=== PATIENT | female | born 1995 | race Native Hawaiian/Other Pacific Islander ===

== ENCOUNTER 2019-05-07 07:49 | Emergency (ER) | payer OTHER, MEDICAID, SELFPAY ==
[2019-05-07 07:51] VITALS: BP 127/80; PULSE 84; RESP 18; TEMP 36.9; O2SAT 98; BMI 27.8
--- NOTE | 2019-05-07 07:51 | ED_ITS ---
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 ; reports she will intermittently have pain; she also has a complaint that she believes there might be a lump on her cheekbone Onset (ago): year(s) Duration: intermittent Severity: mild Exacerbating factors: chewing Associated symptoms: Reports no associated symptoms; Denies ear or mastoid pain, fever(s) or painful swallowing Treatment prior to arrival: none Review of Systems Const: Denies: fever or chills Eyes: Denies: change in vision, blurry vision or photophobia ENMT: Reports: facial/sinus pain; Denies: throat pain, enlarged tonsils, painful swallowing, swelling of lips/tongue, oral sores/lesions, dental pain, ear pain, tinnitus, nasal discharge or nasal congestion Physical Exam Const: COMMON NORMALS: no apparent distress, oriented x3, healthy appearing, alert and well nourished HENMT: COMMON NORMALS: normocephalic, head/scalp atraumatic, external ears normal, EAC's normal, TM's normal bilaterally, external nose normal, oropharynx normal and dentition normal HEAD & SCALP: normocephalic and atraumatic FACE & SINUS: other (TTP R zygomatic bone and TMJ; no clicking noted) NOSE: external nose normal EXTERNAL EAR: Yes external ears normal EXTERNAL AUDITORY CANAL: EAC's normal TYMPANIC MEMBRANE: TM's normal bilaterally MOUTH: oral and palatal mucosa normal and salivary glands and ducts normal THROAT: posterior oropharynx normal, tonsils normal and uvula midline OTHER: what pt feels to be a lump on her bone is actually normal bony anatomy of her zygomatic bone as the same is felt on the left side Neck/C-Spine: COMMON NORMALS: no lymphadenopathy Neuro: COMMON NORMALS: oriented x3 SENSORIUM/ORIENTATION: Yes alert Course Vital Signs: Vital signs: Vital Signs Temperature 98.4 F 05/07/19 07:51 Pulse Rate 67 05/07/19 08:08 Respiratory Rate 15 05/07/19 08:08 Blood Pressure 122/85 05/07/19 08:08 Pulse Oximetry 97 05/07/19 08:08 Discharge Plan Discharge Patient Disposition: Home, Self-Care Clinical Impression: TMJ arthralgia Qualifiers: Laterality: right Qualified Code(s): M26.621 - Arthralgia of right temporomandibular joint Condition: Stable Prescriptions: New diclofenac sodium 50 mg tablet,delayed release (DR/EC) 50 mg PO Q12H PRN (Reason: pain) Qty: 20 RF: 0 Discharge Orders: Discharge Order (Routine); Ordered 05/07/19 Ordered By: Lidia Magana Discharge Diet: Usual diet Discharge Activity: Resume usual activity Activity Restrictions/Additional Instructions: Case management will set you up with a primary care physician. Discharge Date/Time: 05/07/19 08:09 Coding Level of Care Code ED Plastic Surgeon for Asaf Hernández
--- NOTE | 2019-05-07 08:01 | PC.NURSE ---
Patient has right sided facial pain with swelling. Patient has chronic jaw problems. Swelling palpated.
[2019-05-07 08:08] VITALS: BP 122/85; PULSE 67; RESP 15; O2SAT 97
--- NOTE | 2019-05-07 12:51 | DCPLANNER ---
brand strategy manager had message to speak with patient about getting established with a primary care physician. brand strategy manager called [phone], unable to speak with patient at this time, no voicemail set up.
== END 2019-05-07 08:09 | disposition home or self-care (01) ==
LOC: ER 08:07
PROVIDERS: Emergency Provider Physician Assistant
DX: M26.621 Arthralgia of right temporomandibular joint (principal)
CPT/HCPCS: 99281; 99283

== ENCOUNTER → 2019-09-11 15:01 | Outpatient (BNVA) | payer OTHER, MEDICAID, SELFPAY | PROVIDERS: Visit Provider Obstetrics & Gynecology | DX: N91.5 Oligomenorrhea, unspecified (principal); N89.8 Other specified noninflammatory disorders of vagina; B37.3 Candidiasis of vulva and vagina | CPT/HCPCS: 84146; 84443; 87210; 87491; 87591 ==

== ENCOUNTER → 2019-12-26 14:43 | Outpatient (BNVA) | payer OTHER, MEDICAID, SELFPAY | PROVIDERS: Visit Provider Psychiatry & Neurology Psychiatry | DX: F60.3 Borderline personality disorder (principal); F33.2 Major depressive disorder, recurrent severe without psychotic features; F41.1 Generalized anxiety disorder; F17.200 Nicotine dependence, unspecified, uncomplicated | CPT/HCPCS: 99204 ==

== ENCOUNTER → 2020-01-24 08:14 | Outpatient (BNVA) | payer OTHER, MEDICAID, SELFPAY | PROVIDERS: Visit Provider Psychiatry & Neurology Psychiatry | DX: F41.1 Generalized anxiety disorder (principal); F33.2 Major depressive disorder, recurrent severe without psychotic features; F60.3 Borderline personality disorder; F17.200 Nicotine dependence, unspecified, uncomplicated | CPT/HCPCS: 99214 ==

== ENCOUNTER → 2020-02-21 07:40 | Outpatient (BNVA) | payer OTHER, MEDICAID, SELFPAY | PROVIDERS: Visit Provider Psychiatry & Neurology Psychiatry | DX: F41.1 Generalized anxiety disorder (principal); F33.2 Major depressive disorder, recurrent severe without psychotic features; F60.3 Borderline personality disorder; F17.200 Nicotine dependence, unspecified, uncomplicated | CPT/HCPCS: 99213 ==

== ENCOUNTER → 2020-05-08 08:30 | Outpatient (BNVA) | payer OTHER, MEDICAID, SELFPAY | PROVIDERS: Visit Provider Psychiatry & Neurology Psychiatry | DX: F41.1 Generalized anxiety disorder (principal); F33.2 Major depressive disorder, recurrent severe without psychotic features; F60.3 Borderline personality disorder; F17.200 Nicotine dependence, unspecified, uncomplicated | CPT/HCPCS: 99213 ==

== ENCOUNTER → 2020-05-13 09:37 | Outpatient (BNVA) | payer OTHER, MEDICAID, SELFPAY | PROVIDERS: Visit Provider Nurse Practitioner Women's Health | DX: R87.619 Unspecified abnormal cytological findings in specimens from cervix uteri (principal); N91.5 Oligomenorrhea, unspecified; E28.2 Polycystic ovarian syndrome; Z30.017 Encounter for initial prescription of implantable subdermal contraceptive | CPT/HCPCS: 84702; 88175 ==

== ENCOUNTER → 2020-05-25 14:50 | Outpatient (BNVA) | payer OTHER, MEDICAID, SELFPAY | PROVIDERS: Visit Provider Family Medicine | DX: E28.2 Polycystic ovarian syndrome (principal); Z13.6 Encounter for screening for cardiovascular disorders | CPT/HCPCS: 80053; 80061; 83036 ==

== ENCOUNTER 2020-05-26 10:51 | Outpatient (CLI) | payer OTHER, MEDICAID, SELFPAY ==
--- NOTE | 2020-05-26 11:14 | XR_ITS ---
WS: [id number] CERVICAL SPINE TECHNIQUE: 3 views of the cervical spine CLINICAL INFORMATION: chronic neck pain with radiculopathy COMPARISON: None. FINDINGS: Straightening of the normal cervical lordosis. Slight anterolisthesis C4 on C5 and C5 on C6. Normal C 1-2 articulation. Disc space heights and vertebral body heights are well preserved. Normal prevertebr al soft tissues. XR/XR cervical spine 3V* [id number] IMPRESSION: 1. Straightening of the normal cervical lordosis with slight anterolisthesis C 4 on C5 and C5 on C6. 2. Normal C1-2 articulation.
== END 2020-05-26 10:52 | disposition home or self-care (01) ==
LOC: RADWPI 10:56
PROVIDERS: PCP Family Medicine; Visit Provider Family Medicine
DX: M54.2 Cervicalgia (principal); M54.12 Radiculopathy, cervical region
CPT/HCPCS: 72040

== ENCOUNTER → 2020-06-04 08:01 | Outpatient (BNVA) | payer OTHER, MEDICAID, SELFPAY | PROVIDERS: PCP Family Medicine; Visit Provider Psychiatry & Neurology Psychiatry | DX: F41.1 Generalized anxiety disorder (principal); F33.2 Major depressive disorder, recurrent severe without psychotic features; F60.3 Borderline personality disorder; F17.200 Nicotine dependence, unspecified, uncomplicated | CPT/HCPCS: 99213 ==

== ENCOUNTER 2020-06-08 08:24 | Emergency (ER) | payer OTHER, MEDICAID, SELFPAY ==
[2020-06-08 08:32] VITALS: BP 133/77; PULSE 79; RESP 16; TEMP 36.3; O2SAT 97; BMI 38.4
--- NOTE | 2020-06-08 08:38 | W.ED.NAVMDI ---
HPI - Nausea/Vomiting/Diarrhea General: Chief complaint: Abdominal Pain Stated complaint: Throwing up Blood Time Seen by Provider: 06/08/20 08:25 Source: patient Mode of arrival: ambulatory Limitations: no limitations History of Present Illness: HPI Narrative: Patient is a 25-year-old female who presents to ED today with what she believes is blood in her vomit. Patient tells me yesterday she began having abdominal pain that she described as crampy in nature and states it felt like I had food poisoning . She denies any bad food exposures. No body else in the home was sick. She states yesterday afternoon/evening she began vomiting. She states she had 2-3 episodes of normal vomit but states today she had another 2-3 episodes that she describes as black and coffee-ground looking . She states her abdominal pain is located to her mid abdomen as well as throughout her upper abdomen. Patient states she had a gastric ulcer once approximately 10 years ago. Reports she normally takes Famotidine but has been out of this medication. She does tell me she was recently placed on meloxicam for neck inflammation . She has not tried treating at home with anything. She has not been running fevers. She is having normal bowel movements. Patient is not on anticoagulation. She has not been taking any OTC anti-inflammatories along with the meloxicam. Patient denies alcohol use. MD elicited complaint: nausea, vomiting and abdominal pain Associated nausea: Yes Associated abdominal pain: Yes Location of pain: Epigastric, Periumbilical, LUQ and RUQ Pain consistency: constant Severity: mild Exacerbating factors: eating Associated symtoms: Reports dizziness and nausea; Denies change in vision, chest pain, dysuria, fatigue, headache(s), malaise, palpitations or syncope Treatment prior to arrival: none Review of Systems Const: Denies: fever(s), chills, body aches, fatigue or malaise Eyes: Denies: change in vision ENMT: Denies: throat pain or odynophagia Card: Denies: chest pain, palpitations, irregular heart rhythm, edema, swelling of feet/ankles, syncope, pre-syncope, dyspnea on exertion or orthopnea Resp: Denies: dyspnea, productive cough, non-productive cough, wheezing, hemoptysis or chest congestion GI: Reports: abdominal pain, nausea, vomiting and hematemesis; Denies: diarrhea, change in bowel habits, rectal swelling, change in stool character, hematochezia or melena : Denies: flank pain, difficulty voiding, dysuria, urinary frequency, urinary urgency or urinary hesitancy Musc: Denies: neck pain or back pain Skin/Breast: Denies: rash Neuro: Reports: dizziness; Denies: headache(s), numbness in extremities, weakness in extremities or sensory changes PFSH ED PFSH: Medical History Abnormal Pap smear of cervix 05/11/2018: LGSIL (beginning of ). 12/17/2018: Negative for intraepithelial lesion or malignancy (). History of depression History of depression. Has been treated with Celexa, which did not help. Treated with Effexor, but states had a reaction to it. Treated with Wellbutrin during . Followed by [facility] No pertinent past medical history neghx: htn,dm,thyroid,dvt/pe PCP: None Ocular migraine previously managed by [facility] Tachycardia Dx'd at 9 y/o; managed with propranolol Surgical History No pertinent past surgical history Family History Grandmother Uterine cancer maternal great Ovarian cancer maternal great Stroke maternal Heart disease maternal, paternal Hypertension maternal, paternal Diabetes maternal Grandfather Heart disease paternal Hypertension maternal, paternal Father Heart disease Hypertension Mother Hypertension Social History Smoking and tobacco status: current every day smoker e-cigarettes E-Cigarette Details: vaporizer device and with nicotine Alcohol intake: current Alcohol intake frequency: holidays/special occasions only Physical Exam Const: COMMON NORMALS: no acute distress, patient oriented x3, no limitations and alert GENERAL APPEARANCE: cooperative NUTRITIONAL APPEARANCE: obese morbidly obese ORIENTATION/CONSCIOUSNESS: Yes awake, Yes oriented to person, Yes oriented to place and Yes oriented to time HENMT: COMMON NORMALS: normocephalic and atraumatic HEAD & SCALP: normocephalic and atraumatic Resp: COMMON NORMALS: normal respiratory effort and clear to auscultation bilaterally AUSCULTATION: clear to auscultation bilaterally Cardio: COMMON NORMALS: regular rate and regular rhythm RATE: regular rate RHYTHM: regular rhythm GI: COMMON NORMALS: Normal to inspection, nondistended, normoactive bowel sounds present, Soft to palpation, No hepatosplenomegaly present and no masses INSPECTION: Yes normal to inspection AUSCULTATION: Yes normoactive bowel sounds PALPATION: Yes Soft to palpation, Yes Tenderness to palpation present (GI) (mid abdomen near umbilicus and to the L; throughout upper abdomen) and Yes No hepatosplenomegaly present : COMMON NORMALS: Yes no CVA tenderness BLADDER/KIDNEY EXAM: Yes no CVA tenderness Back/Pelvis: COMMON NORMALS: no CVA tenderness Neuro: COMMON NORMALS: patient oriented x3 SENSORIUM/ORIENTATION: Yes alert, Yes oriented to person, Yes oriented to place and Yes oriented to time Skin: COMMON NORMALS: no rashes or lesions noted GENERAL SKIN EXAM: no rashes or lesions noted Course Vital Signs: Vital signs: Vital Signs Temperature 97.3 F L 06/08/20 08:32 Pulse Rate 68 06/08/20 09:37 Respiratory Rate 16 06/08/20 09:37 Blood Pressure 104/73 06/08/20 09:37 Pulse Oximetry 98 06/08/20 09:37 MDM - Nausea/Vomiting/Diarrhea MDM Narrative: Medical decision making narrative: Patient states she feels much better after GI cocktail given here. No vomiting during her ED course. Lab work is non-concerning. Orthostatics are negative. She is hemodynamically stable. CT showing hiatal hernia and possibly gastritis. Symptoms began a few days after starting meloxicam. At this time we will place patient on a PPI/Carafate. Will place information with case management to get her follow-up with general surgery for possible endoscopy if symptoms do not improve. Return to ED precautions given. Lab Data: Labs: Lab Results 06/08/20 06/08/20 06/08/20 Range/Units 08:42 08:42 08:42 WBC 7.9 (4.0-10.0) 10^3/ uL RBC 4.31 (4.1-5.3) 10^6/u L Hgb 12.8 (11.5-15.3) g/dL Hct 39.0 (37.0-47.0) % MCV 90.5 (81-99) fL MCH 29.7 (28.0-34.0) pg MCHC 32.8 (30.0-36.0) g/dL RDW 12.2 (12.1-15.1) % Plt Count 320 (130-400) 10^3/c mm MPV 9.7 (7.4-10.4) fL Neut % (Auto) 53.4 % Lymph % (Auto) 36.6 % Gordon % (Auto) 7.7 % Eos % (Auto) 1.9 % Baso % (Auto) 0.3 % Neut # (Auto) 4.24 (1.8-7.7) 10^3/u L Lymph # (Auto) 2.9 (0.8-4.8) 10^3/u L Gordon # (Auto) 0.6 (0.2-0.9) 10^3/u L Eos # (Auto) 0.2 (0.0-0.8) 10^3/u L Baso # (Auto) 0.0 (0.0-0.1) 10^3/u L Nucleated RBC % (a uto) 0 % Nucleated RBCs # 0.0 /100WBC Sodium 138 (136-145) mmol/L Potassium 4.1 (3.5-5.1) mmol/L Chloride 105 (98-107) mmol/L Carbon Dioxide 25 (22-29) mmol/L Anion Gap 12.1 (5-19) BUN 9 (6-20) mg/dL Creatinine 0.6 (0.5-0.9) mg/dL GFR Calculation 123.9 (90-130) mL/min Glucose 96 (65-115) mg/dL Calculated Osmolal ity 285 (285-295) mOsm/k g Calcium 9.0 (8.5-10.5) mg/dL Total Bilirubin 0.2 (0.15-1.2) mg/dL AST 15 (0-32) U/L ALT 17 (0-33) U/L Alkaline Phosphata se 119 H (35-105) IU/L Total Protein 7.2 (6.6-8.7) g/dL Albumin 4.2 (3.5-5.2) g/dL Globulin 3.0 (1.3-4.6) g/dL Lipase 19 (13-60) U/L HCG, Qual Negative (Negative) Imaging Data^: CT Abd/Pel: Radiologist's impression: [facility] [address] [place] [address] CT Scan Report Signed Patient: Lesli Ospina #: [id number] : 1995Acct#:[id number] Age/Sex: 25 / FADM Date: 06/08/20 Loc: ERRoom/Bed: Attending Dr: Ordering Provider/Ordering MD: Lidia Magana Date of Service: 06/08/20 Procedure(s): CT abdomen pelvis w con* [id number] Accession Number(s): [id number] Report Number: [id number] WS: [id number] CT ABDOMEN AND PELVIS WITH CONTRAST HISTORY: mid to upper abdominal pain; hematemesis TECHNIQUE: Imaging performed of the abdomen and pelvis with IV contrast. Single phase imaging of the abdomen. Coronal and sagittal reformats are submitted. All CT scans at [facility] use at least one of these dose optimization techniques: automated exposure control; mA and/or kV adjustment per patient size (includes targeted exams where dose is matched to clinical indication); or iterative reconstruction. IV CONTRAST: Omnipaque 300; 95 mL IV. Oral contrast: No DLP: 1408.88 mGy.cm COMPARISON: 11/10/2017 Lower thorax: Lung bases are clear. Heart is normal size. Small hiatal hernia. There is mild thickening of the distal esophagus. Liver/biliary system: Normal size with no intrahepatic dilatation. Gallbladder: Normal. No gallstones or wall thickening. No pericholecystic fluid. Pancreas: Normal. Spleen: Normal. Adrenal glands: Normal. Right kidney: Normal. Left kidney: Normal. Aorta: Normal. Lymphadenopathy: None. Free fluid: None. GI tract: Very mild thickening of the stomach antrum. No mass identified. No GI tract obstruction. The appendix is normal. No diverticular disease. Abdominal wall: Unremarkable abdominal wall. No hernia. Pelvis: Normal. Bones: Unremarkable. CT/CT abdomen pelvis w con* [id number] IMPRESSION: 1. Small hiatal hernia with mild thickening the distal esophagus. May be from vomiting or esophagitis. 2. Mild antral thickening. 3. Normal appendix. 4. No bile duct dilatation. Dictated By:Doris Cortez DO Signed By:Doris Cortez DOSigned Date/Time:06/08/20904 DD/ 9 Discharge Plan Discharge Patient Disposition: Home Clinical Impression: Hematemesis Qualifiers: Nausea presence: with nausea Qualified Code(s): K92.0 - Hematemesis Condition: Stable Prescriptions: New pantoprazole 40 mg tablet,delayed release (DR/EC) 40 mg PO DAILY 28 Days RF: 0 Carafate 1 gram tablet 1 g PO BID 28 Days Qty: 56 RF: 0 Continued famotidine 20 mg tablet 20 mg PO BID Qty: 60 RF: 0 Discontinued meloxicam [Mobic] 15 mg tablet 15 mg PO DAILY Qty: 30 RF: 1 No Action trazodone 50 mg tablet 100 mg PO .HS Qty: 60 RF: 2 fluoxetine [Prozac] 20 mg capsule 20 mg PO DAILY Qty: 30 RF: 2 prazosin 5 mg capsule 5 mg PO .HS Qty: 30 RF: 2 Discharge Orders: Discharge ED (Routine); Ordered 06/08/20 Ordered By: Lidia Magana Referrals: Elise Colon DO [Primary Care Provider] - Patient Instructions: Diet for Ulcers and Gastritis (ED), Opioid Safety Activity Restrictions/Additional Instructions: [facility] is committed to fighting the nationwide opiate epidemic. We are providing ALL patients with information regarding opiate safety. If you received opiate pain medication during your stay or if you received a prescription for opiate pain medication-please review this handout. If not, you may disregard. Thank you. Stop taking your meloxicam immediately. Case management should contact you shortly to set you up with an appointment for general surgery for evaluation for an endoscopy if symptoms do not improve. You need to return to the emergency department immediately for worsening bleeding, worsening dizziness, passing out episodes, severe abdominal pain, or any other concerns you may have. Coding Level of Care Code ED Institutional Research Coordinator for Asaf Hernández Exam Detailed
--- NOTE | 2020-06-08 08:38 | CT_ITS ---
WS: [id number] CT ABDOMEN AND PELVIS WITH CONTRAST HISTORY: mid to upper abdominal pain; hematemesis TECHNIQUE: Imaging performed of the abdomen and pelvis with IV contrast. Single phase imaging of the abdomen. Coronal and sagittal reformats are submitted. All CT scans at [facility] use at least one of these dose optimization techniques: automated exposure control; mA and/or kV adjustment per patient size (includes targeted exams where dose is matched to clinical indication); or iterativ e reconstruction. IV CONTRAST: Omnipaque 300; 95 mL IV. Oral contrast: No DLP: 1408.88 mGy.cm COMPARISON: 11/10/2017 Lower thorax: Lung bases are clear. Heart is normal size. Small hiatal hernia. There is mild thickeni ng of the distal esophagus. Liver/biliary system: Normal size with no intrahepatic dilatation. Gallbladder: Normal. No gallstones or wall thickening. No pericholecystic fluid. Pancreas: Normal. Spleen: Normal. Adrenal glands: Normal. Right kidney: Normal. Left kidney: Normal. Aorta: Normal. Lymphadenopathy: None. Free fluid: None. GI tract: Very mild thickening of the stomach antrum. No mass identified. No GI tract obstruction. Th e appendix is normal. No diverticular disease. Abdominal wall: Unremarkable abdominal wall. No hernia. Pelvis: Normal. Bones: Unremarkable. CT/CT abdomen pelvis w con* [id number] IMPRESSION: 1. Small hiatal hernia with mild thickening the distal esophagus. May be from vomiting or esophagitis. 2. Mild antral thickening. 3. Normal appendix. 4. No bile duct dilatation.
[2020-06-08 08:42] VITALS: PULSE 76; RESP 18; O2SAT 96
[2020-06-08 08:49] LABS: Basophils % 0.3 %; Eosinophils # 0.2 10^3/uL (0.0-0.8); Eosinophils % 1.9 %; Hemoglobin 12.8 g/dL (11.5-15.3); Lymphocytes # 2.9 10^3/uL (0.8-4.8); Lymphocytes % 36.6 %; Mean Corpuscular HGB Conc 32.8 g/dL (30.0-36.0); Mean Corpuscular Hemoglobin 29.7 pg (28.0-34.0); Mean Corpuscular Volume 90.5 fL (81-99); Mean Platelet Volume 9.7 fL (7.4-10.4); Monocytes # 0.6 10^3/uL (0.2-0.9); Monocytes % 7.7 %; Neutrophils # 4.24 10^3/uL (1.8-7.7); Neutrophils % 53.4 %; Nucleated Red Blood Cells % 0 %; Platelet Count 320 10^3/cmm (130-400); Red Blood Count 4.31 10^6/uL (4.1-5.3); Red Cell Distribution Width 12.2 % (12.1-15.1); White Blood Count 7.9 10^3/uL (4.0-10.0)
[2020-06-08] MEDS: iohexol 300 mg/mL 100 mL Btl IV (08:50)
[2020-06-08 08:54] VITALS: BP 116/81; BP 126/63; BP 126/87; PULSE 73; PULSE 80; PULSE 83
[2020-06-08] MEDS: sodium chloride 0.9% 1,000 ML 999 ML IV (08:57)
[2020-06-08] MEDS: ondansetron 2 mg/ML SDV 2 mL 4 MG IVP (08:58)
[2020-06-08] MEDS: lidocaine 2% viscous 15 ML, aluminum-mag hydrox-simethicon 30 ML, sucralfate oral liq 1 GM PO (08:58)
[2020-06-08 09:04] LABS: Alanine Aminotransferase 17 U/L (0-33); Albumin Level 4.2 g/dL (3.5-5.2); Alkaline Phosphatase 119 IU/L (35-105); Anion Gap 12.1 (5-19); Aspartate Amino Transferase 15 U/L (0-32); Blood Urea Nitrogen 9 mg/dL (6-20); Carbon Dioxide 25 mmol/L (22-29); Chloride 105 mmol/L (98-107); Glomerular Filtration Rate 123.9 mL/min (90-130); Glucose 96 mg/dL (65-115); Lipase 19 U/L (13-60); Osmolality Calculated 285 mOsm/kg (285-295); Potassium 4.1 mmol/L (3.5-5.1); Sodium 138 mmol/L (136-145); Total Bilirubin 0.2 mg/dL (0.15-1.2); Total Protein 7.2 g/dL (6.6-8.7)
[2020-06-08 09:12] LABS: HCG, Serum Qual Negative (Negative)
[2020-06-08] MEDS: pantoprazole DR 40 mg Tablet PO (09:36)
[2020-06-08 09:37] VITALS: BP 104/73; PULSE 68; RESP 16; O2SAT 98
--- NOTE | 2020-06-09 11:50 | DCPLANNER ---
manager sas received message to schedule appointment with general surgery. manager sas emailed Jennifer. They will reviewed and contact patient with appointment information.
--- NOTE | 2020-06-16 14:55 | DCPLANNER ---
Patient had a follow up appointment scheduled for 06.15.[address] Delacruz at general surgery - patient did attend appointment.
== END 2020-06-08 09:40 | disposition home or self-care (01) ==
PROVIDERS: Emergency Provider Physician Assistant; PCP Family Medicine
DX: K92.0 Hematemesis (principal); F17.290 Nicotine dependence, other tobacco product, uncomplicated
CPT/HCPCS: 74177; 80053; 83690; 84703; 85025; 96361; 96374; 99283; J2405; J7030; Q9967

== ENCOUNTER 2020-06-23 10:19 | Outpatient (RCR) | payer OTHER, MEDICAID, SELFPAY | END 2020-07-22 23:59 | disposition home or self-care (01) | LOC: SPT 10:19 | PROVIDERS: PCP Family Medicine; Referring Provider Anesthesiology Pain Medicine; Visit Provider Family Medicine | DX: M54.2 Cervicalgia (principal); G89.29 Other chronic pain | CPT/HCPCS: 97110; 97161 ==

== ENCOUNTER → 2020-06-30 11:02 | Outpatient (BNVA) | payer OTHER, MEDICAID, SELFPAY | PROVIDERS: PCP Family Medicine; Visit Provider Nurse Practitioner Women's Health | DX: Z30.017 Encounter for initial prescription of implantable subdermal contraceptive (principal) | CPT/HCPCS: 81025 ==

== ENCOUNTER → 2020-07-30 08:32 | Outpatient (BNVA) | payer OTHER, MEDICAID, SELFPAY | PROVIDERS: PCP Family Medicine; Visit Provider Psychiatry & Neurology Psychiatry | DX: F41.1 Generalized anxiety disorder (principal); F33.2 Major depressive disorder, recurrent severe without psychotic features; F60.3 Borderline personality disorder; F17.200 Nicotine dependence, unspecified, uncomplicated | CPT/HCPCS: 99213 ==

== ENCOUNTER → 2020-10-22 10:42 | Outpatient (BNVA) | payer MEDICAID, SELFPAY | PROVIDERS: PCP Family Medicine; Visit Provider Psychiatry & Neurology Psychiatry | DX: F41.1 Generalized anxiety disorder (principal); F33.2 Major depressive disorder, recurrent severe without psychotic features; F60.3 Borderline personality disorder; F17.200 Nicotine dependence, unspecified, uncomplicated; F17.290 Nicotine dependence, other tobacco product, uncomplicated | CPT/HCPCS: 99214 ==

== ENCOUNTER → 2021-01-14 10:49 | Outpatient (BNVA) | payer MEDICAID, SELFPAY | PROVIDERS: PCP Family Medicine; Visit Provider Psychiatry & Neurology Psychiatry | DX: F41.1 Generalized anxiety disorder (principal); F33.2 Major depressive disorder, recurrent severe without psychotic features; F60.3 Borderline personality disorder; F17.290 Nicotine dependence, other tobacco product, uncomplicated | CPT/HCPCS: 99214 ==

== ENCOUNTER → 2021-04-08 11:38 | Outpatient (BNVA) | payer MEDICAID, SELFPAY | PROVIDERS: PCP Family Medicine; Visit Provider Counselor Mental Health | DX: F41.1 Generalized anxiety disorder (principal); F33.2 Major depressive disorder, recurrent severe without psychotic features; F60.3 Borderline personality disorder | CPT/HCPCS: 90837; 90834 ==

== ENCOUNTER → 2021-04-20 14:59 | Outpatient (BNVA) | payer MEDICAID, SELFPAY | PROVIDERS: PCP Family Medicine; Visit Provider Counselor Mental Health | DX: F41.1 Generalized anxiety disorder (principal); F33.2 Major depressive disorder, recurrent severe without psychotic features; F60.3 Borderline personality disorder | CPT/HCPCS: 90834 ==

== ENCOUNTER → 2021-05-10 11:29 | Outpatient (BNVA) | payer MEDICAID, SELFPAY | PROVIDERS: PCP Family Medicine; Visit Provider Counselor Mental Health | DX: F41.1 Generalized anxiety disorder (principal); F33.2 Major depressive disorder, recurrent severe without psychotic features; F60.3 Borderline personality disorder | CPT/HCPCS: 90834 ==

== ENCOUNTER → 2021-05-26 07:23 | Outpatient (BNVA) | payer MEDICAID, SELFPAY | PROVIDERS: PCP Family Medicine; Visit Provider Psychiatry & Neurology Psychiatry | DX: F41.1 Generalized anxiety disorder (principal); F33.2 Major depressive disorder, recurrent severe without psychotic features; F60.3 Borderline personality disorder; F43.12 Post-traumatic stress disorder, chronic; F17.290 Nicotine dependence, other tobacco product, uncomplicated; F12.10 Cannabis abuse, uncomplicated | CPT/HCPCS: 99214 ==

== ENCOUNTER → 2021-06-23 08:04 | Outpatient (BNVA) | payer MEDICAID, SELFPAY | PROVIDERS: PCP Family Medicine; Visit Provider Counselor Mental Health | DX: F43.12 Post-traumatic stress disorder, chronic (principal); F41.1 Generalized anxiety disorder; F33.2 Major depressive disorder, recurrent severe without psychotic features; F60.3 Borderline personality disorder | CPT/HCPCS: 90834 ==

== ENCOUNTER → 2021-06-30 13:55 | Outpatient (BNVA) | payer MEDICAID, SELFPAY | PROVIDERS: PCP Family Medicine; Visit Provider Counselor Mental Health | DX: F33.2 Major depressive disorder, recurrent severe without psychotic features (principal); F41.1 Generalized anxiety disorder; F43.12 Post-traumatic stress disorder, chronic; F60.3 Borderline personality disorder | CPT/HCPCS: 90837; 90834 ==

== ENCOUNTER → 2021-07-22 13:06 | Outpatient (BNVA) | payer MEDICAID, SELFPAY | PROVIDERS: PCP Family Medicine; Visit Provider Counselor Mental Health | DX: F33.2 Major depressive disorder, recurrent severe without psychotic features (principal); F41.1 Generalized anxiety disorder; F60.3 Borderline personality disorder | CPT/HCPCS: 90834 ==

== ENCOUNTER → 2021-07-29 13:31 | Outpatient (BNVA) | payer MEDICAID, SELFPAY | PROVIDERS: PCP Family Medicine; Visit Provider Counselor Mental Health | DX: F43.12 Post-traumatic stress disorder, chronic (principal); F41.1 Generalized anxiety disorder; F33.2 Major depressive disorder, recurrent severe without psychotic features; F60.3 Borderline personality disorder | CPT/HCPCS: 90834; 90847 ==

== ENCOUNTER → 2021-08-19 07:38 | Outpatient (BNVA) | payer MEDICAID, SELFPAY | PROVIDERS: PCP Family Medicine; Visit Provider Counselor Mental Health | DX: F33.2 Major depressive disorder, recurrent severe without psychotic features (principal); F41.1 Generalized anxiety disorder; F43.12 Post-traumatic stress disorder, chronic; F60.3 Borderline personality disorder | CPT/HCPCS: 90832 ==

== ENCOUNTER → 2021-10-08 06:34 | Outpatient (BNVA) | payer MEDICAID, SELFPAY | PROVIDERS: PCP Family Medicine; Visit Provider Counselor Mental Health | DX: F43.12 Post-traumatic stress disorder, chronic (principal); F41.1 Generalized anxiety disorder; F33.2 Major depressive disorder, recurrent severe without psychotic features; F60.3 Borderline personality disorder | CPT/HCPCS: 90834 ==

== ENCOUNTER → 2021-10-14 07:29 | Outpatient (BNVA) | payer MEDICAID, SELFPAY | PROVIDERS: PCP Family Medicine; Visit Provider Counselor Mental Health | DX: F43.12 Post-traumatic stress disorder, chronic (principal); F33.2 Major depressive disorder, recurrent severe without psychotic features; F41.1 Generalized anxiety disorder; F60.3 Borderline personality disorder | CPT/HCPCS: 90834 ==

== ENCOUNTER 2023-12-09 13:49 | Outpatient (CLI) | payer MEDICAID, SELFPAY ==
[2023-12-09] VITALS (8 sets, daily range): BP systolic 103–117; BP diastolic 56–68; PULSE 68–83; RESP 15–17; BMI 30.5
--- NOTE | 2023-12-09 15:38 | PC.NURSE ---
THIS BULLDOGGER ASKED PATIENT UPON ADMISSION IF SHE HAD BEEN CHECKED AND SHE STATED THAT SHE WAS CHECKED IN DR. VALENTINE'S OFFICE AT HER LAST VISIT AND THE NURSE DID IT AND TOLD HER THAT SHE WAS 4 CM. I ASKED HER AGAIN IF IT WAS A NURSE OR DR. VALENTINE AND SHE SAID NO DR. VALENTINE HAD TO LEAVE AND SO NURSE CHECKED HER. SAID SHE WAS TALLER WITH SHORT BROWN HAIR. TOLD HER THAT NURSES AT THE OFFICE WERE NOT ALLOWED TO CHECK PATIENT'S CERVIXS THAT I WAS AWARE OF. WHEN I GAVE REPORT TO DR. VALENTINE HE SAID THAT HIS NURSES DON'T CHECK THE PATIENTS AND I SAID I THOUGHT SO BUT JUST WANTED TO MAKE HIM AWARE WHAT PATIENT SAID. PATIENT ALSO STATED THAT SHE DIDN'T HAVE APPOINTMENT WITH HIM NEXT WEEK BECAUSE THEY SAID DOCTOR WOULD BE OUT OF TOWN. DR. VALENTINE SAID HE WAS GOING TO BE AT THE OFFICE AND THAT SHE NEEDS TO CALL MONDAY AND MAKE APPOINTMENT FOR THIS WEEK.
== END 2023-12-09 15:28 | disposition home or self-care (01) ==
LOC: OPOB 13:49 → OBGYN 13:50
PROVIDERS: Absent Provider Family Medicine; Family Provider Family Medicine; PCP Family Medicine; Visit Provider Family Medicine
DX: O26.899 Other specified pregnancy related conditions, unspecified trimester (principal); Z3A.00 Weeks of gestation of pregnancy not specified; R10.9 Unspecified abdominal pain
CPT/HCPCS: 59025; 99211

== ENCOUNTER 2023-12-23 12:45 | Inpatient (IN) | payer MEDICAID, SELFPAY ==
[2023-12-23] VITALS (60 sets, daily range): BP systolic 90–131; BP diastolic 53–73; PULSE 55–101; O2SAT 93–100; BMI 31.6
[2023-12-23 12:38] LABS: Basophils % 0.2 %; Eosinophils % 0.4 %; Hematocrit 35.7 % (36-47); Lymphocytes # 1.9 10^3/uL (0.8-4.8); Lymphocytes % 19.6 %; Mean Corpuscular HGB Conc 33.9 g/dL (30-55); Mean Corpuscular Hemoglobin 30.6 pg (27-33); Mean Corpuscular Volume 90.2 fl (85-98); Mean Platelet Volume 11.5 fL (7.4-10.4); Monocytes # 0.7 10^3/uL (0.2-0.9); Monocytes % 7.1 %; Neutrophils # 6.85 10^3/uL (1.8-7.7); Neutrophils % 72.4 %; Nucleated Red Blood Cells % 0 %; Platelet Count 218 10^3/cmm (157-399); Red Blood Count 3.96 10^6/uL (3.85-5.65); Red Cell Distribution Width 12.2 % (12.1-15.1); White Blood Count 9.47 10^3/uL (3.29-11.43)
[2023-12-23] MEDS: lactated ringers 1,000 ML 999 ML IV (12:55)
--- NOTE | 2023-12-23 13:51 | ANES.PREANE2 ---
Pre-Anesthetic Assessment Height/Weight: Height 1.6 m Pulse BP 71 112/69 12/23/23 13:46 12/23/23 13:46 Preop Diagnosis: IUP Labor epidural Familial anesthetic complications: None Was Beta Omayra taken within 24 hours: N/A Was Clonidine taken within 24 hours: N/A Social Tobacco (vaping x14 years ) Exam alert, oriented x 3 and clear to auscultation bilaterally Airway Mallampati: Class I Dentition: full History/ROS No significant history except as noted Pulmonary None reported CV/HEM None reported None reported Hepatic None reported GI None reported Metabolic None reported Musc/skel None reported Neuropsych None reported Anesthetic Plan ASA status: 2 Anesthesia: Anesthesia Evaluation and Regional (specify below) (epidural ) Risk of > 500 ml blood loss (7ml/kg in children): Yes, adequate IV access and fluids planned Medications/Allergies Home Medications Medication Instructions Recorded Confirmed Last Taken Type vits no.124-ferrous fum 1 tab PO DAILY 12/09/23 12/09/23 Unknown History 27 mg iron-folic acid 800 mcg tablet ( Vitamin) Allergies Allergy/AdvReac Type Severity Reaction Status Date / Time butorphanol [From Stadol] Allergy Severe ADR-Halluci Verified 05/26/21 10:50 nating Latex, Natural Rubber Allergy Intermediate ALGY-Hives Verified 05/26/21 10:50 venlafaxine [From Effexor] Allergy Intermediate ADR-Numbnes Verified 05/26/21 10:50 s Current Medications Generic Name Dose Route Start Last Admin Trade Name Freq PRN Reason Stop Dose Admin Lactated Ringer's 1,000 mls @ 999 mls/hr 12/23/23 12:47 12/23/23 12:55 Lactated Ringers IV 999 mls/hr .Q1H1M PRN Administration See label comments [facility] Anesthesia Medical History (Updated 01/27/23 @ 08:58 by Tami Whitt) PCOS (polycystic ovarian syndrome) Ocular migraine previously managed by [facility] Tachycardia Dx'd at 9 y/o; managed with propranolol History of depression History of depression. Has been treated with Celexa, which did not help. Treated with Effexor, but states had a reaction to it. Treated with Wellbutrin during . [facility] Abnormal Pap smear of cervix 05/11/2018: LGSIL (beginning of ). 12/17/2018: Negative for intraepithelial lesion or malignancy (). Surgical History No pertinent past surgical history Family History Grandmother Uterine cancer maternal great Ovarian cancer maternal great Stroke maternal Heart disease maternal, paternal Hypertension maternal, paternal Diabetes maternal Grandfather Heart disease paternal Hypertension maternal, paternal Father Heart disease Hypertension Mother Hypertension Social History (Updated 01/14/21 @ 11:07 by Murtaza Delacruz LPN) Smoking and tobacco/nicotine status: current every day tobacco/nicotine user e-cigarettes E-Cigarette Details: vaporizer device and with nicotine E-cig/vape details: .9 mg/Day Quit status (tobacco/nicotine): has tried quititng Number of times tried to quit tobacco: 1 Second hand smoke exposure: Yes Substance/Drug Use: current Substance/Drug use frequency: Special occassions/opportunity only Data Anesthesia 12/23/23 12:20 Short CBC 12/23/23 Range/Units 12:20 WBC 9.47 (3.29-11.43) 10^3/uL Hgb 12.10 (11.27-16.99) g/dL Hct 35.7 L (36-47) % MCV 90.2 (85-98) fl Plt Count 218 (157-399) 10^3/cmm Neut % (Auto) 72.4 % Neut # (Auto) 6.85 (1.8-7.7) 10^3/uL Cardiac Studies: No Data to Display
[2023-12-23] MEDS: dextrose 5%-lactated ringers 1,000 ML 125 ML IV ×2 (14:00→22:12)
[2023-12-23] MEDS: ROPivacaine syringe 100 MG/50 ML SYRINGE 10 MG EPIDURAL ×3 (14:17→23:21)
--- NOTE | 2023-12-23 14:21 | ANES.PROC ---
Anesthesia Procedures Procedure/Date: 12/23/23 labor epidural Epidural: Time Out Performed: Yes Consents Signed: Procedure Consent Consent: requested by attending/covering physician, from patient, risks and benefits reviewed and patient agrees to proceed Lumbar Level: L4-L5 Epidural position: sitting Epidural procedure: sterile prep of area, 1% lidocaine to numb the area, 18 g needle, negative for paresthesia passed, neg for paresthesia, test dose given, 1.5% xylocaine 1:200k epi, 0.2% Ropivacaine bolus ml (5), placed PCEA, no systemic response, sterile dressing applied, L.U.D. no apparent complications and 0.2% Ropiavacaine @ mls/hr (10) Additional Comments: HEMALATHA 6cm, catheter easily threaded to 5cm in the space. VS monitored and remained stable throughout. Pt educated on BLEACH BOILER PULLER and reporting decreased pain with contractions. Report of procedure given to RN at bedside.
[2023-12-24] VITALS (45 sets, daily range): BP systolic 89–135; BP diastolic 48–82; PULSE 51–110; RESP 16; TEMP 26.3–36.8; O2SAT 97–99
[2023-12-24] MEDS: oxytocin 30 UNIT/500 ML BAG 600 UNIT IV (05:45)
--- NOTE | 2023-12-24 05:55 | P.HP_ITS ---
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 Patient was found to be sandrita every 2 to 4 minutes and starting to be uncomfortable. Patient had progressed to 5 cm at the time of arrival. Patient had a fairly unremarkable . labs were normal. Patient is GBS negative. Present Details : 4 Para: 1 Review of Systems 2 General: Reports: 10 or more systems reviewed and unremarkable except in HPI and below Medications/Allergies Home Medications Medication Instructions Recorded Confirmed Last Taken Type vits no.124-ferrous fum 1 tab PO DAILY 12/09/23 12/23/23 Unknown History 27 mg iron-folic acid 800 mcg tablet ( Vitamin) Allergies Allergy/AdvReac Type Severity Reaction Status Date / Time butorphanol [From Stadol] Allergy Severe ADR-Halluci Verified 05/26/21 10:50 nating Latex, Natural Rubber Allergy Intermediate ALGY-Hives Verified 05/26/21 10:50 venlafaxine [From Effexor] Allergy Intermediate ADR-Numbnes Verified 05/26/21 10:50 s [facility] 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 Has been treated with Celexa, which did not help. Treated with Effexor, but states had a reaction to it. Treated with Wellbutrin during . Followed [facility] Abnormal Pap smear of cervix 05/11/2018: LGSIL (beginning of ). 12/17/2018: Negative for intraepithelial lesion or malignancy (). Surgical History No pertinent past surgical history Family History Grandmother Uterine cancer maternal great Ovarian cancer maternal great Stroke maternal Heart disease maternal, paternal Hypertension maternal, paternal Diabetes maternal Grandfather Heart disease paternal Hypertension maternal, paternal Father Heart disease Hypertension Mother Hypertension Social History (Updated 01/14/21 @ 11:07 by Murtaza Delacruz LPN) Smoking and tobacco/nicotine status: current every day tobacco/nicotine user e- cigarettes E-Cigarette Details: vaporizer device and with nicotine E-cig/vape details: .9 mg/Day Quit status (tobacco/nicotine): has tried quititng Number of times tried to quit tobacco: 1 Second hand smoke exposure: Yes Substance/Drug Use: current Substance/Drug use frequency: Special occassions/opportunity only Other Female Reproductive History: Hx Age of Menarche: 13 History History History 2 3 Term 1 0 Miscarriages/Ectopic 2 Living Children 1 Vitals/I&O/Wt Last Vital Signs Pulse 110 H 12/24/23 05:27 BP 135/82 12/24/23 05:27 Pulse Ox 100 12/23/23 14:53 O2 Del Method Room Air 12/23/23 12:32 12/23/23 12/23/23 12/24/23 14:59 22:59 06:59 Intake Total 1050 / 1050 50 / 1100 Balance 1050 / 1050 50 / 1100 Weight last 48 hrs Weight 78.471 kg Physical Exam 2 Const: COMMON NORMALS: no acute distress, patient oriented x3 and alert Resp: COMMON NORMALS: normal respiratory effort, No retractions and No use of accessory muscles Cardio: COMMON NORMALS: no JVD, regular rate and regular rhythm GI: OTHER: Gravid uterus Extremity: COMMON NORMALS: no clubbing, cyanosis or edema Psych: COMMON NORMALS: mental status grossly normal and cooperative Skin: COMMON NORMALS: no rashes or lesions noted Data 12/23/23 12:20 Results Labs OB ([facility]): 2 Blood Type A Positive 12/23/23 Antibody Screen Negative 12/23/23 Hct 35.7 % (36-47) L 12/23/23 Hgb 12.10 g/dL (11.27-16.99) 12/23/23 Rho(D) Type Rh positive 12/23/23 Plt Count 218 10^3/cmm (157-399) 12/23/23 TSH 1.09 uIU/mL (0.27-4.20) 09/11/19 Hemoglobin A1c 5.3 % (4.0-6.0) 05/25/20 Ser , Semi-Qnt 0.50 mIU/mL 05/13/20 HCG, Qual Negative (Negative) 06/30/20 Urine Opiates Screen NEGATIVE ng/mL (NEGATIVE) 11/02/18 Ur Barbiturates Screen NEGATIVE ng/mL (NEGATIVE) 11/02/18 Ur Phencyclidine Scrn NEGATIVE ng/mL (NEGATIVE) 11/02/18 Ur Amphetamines Screen NEGATIVE ng/mL (NEGATIVE) 11/02/18 U Benzodiazepines Scrn NEGATIVE ng/mL (NEGATIVE) 11/02/18 Urine Cocaine Screen NEGATIVE ng/mL (NEGATIVE) 11/02/18 U Marijuana (THC) Screen NEGATIVE ng/mL (NEGATIVE) 11/02/18 Pap Smear Interpret See note 05/13/20 Prolactin 4.57 ng/mL (4.8-23.3) L 09/11/19 Attestations 2 Medical Necessity Statement*: Patient was admitted for active labor. Anticipate at least 2 midnight stay. Coding Level of Care Code Acute Code for Asaf Hernández
--- NOTE | 2023-12-24 06:00 | PM.DELIVERY ---
Delivery Note: Date of delivery: December 24, 2023 Pre-delivery diagnoses: Term intrauterine Post-delivery diagnoses: Same Procedure: Spontaneous vaginal delivery Delivering Physician: Dr. Anatoliy Rojo Estimated blood loss (mL): 200 Pre-Delivery Course: This is a 28-year-old that presented at 38 weeks 4 days. Patient presented with active contractions. The patient had progressed from 4 cm to 5 cm upon arrival. Patient continued to be very uncomfortable and obtained and observed oral. After epidural patient slowly changed. The patient did have spontaneous rupture membranes. Continue to work with the patient as far as positioning goes and eventually the patient had progressed to completion after forebag had ruptured. Delivery: Upon arrival the head was and with the next contraction the patient was able to deliver the head without difficulty. This was followed by the anterior shoulder and rest of the body. The infant was placed onto the mother's abdomen. After delay the cord was clamped and cut. Symptom was then delivered soon after. Review of the perineum did not demonstrate any significant tears. Patient's bleeding was controlled. Post-Delivery Status: Stable History History History 3 Term 1 0 Miscarriages/Ectopic 2 Living Children 1 A&P Assessment and plan (1) Spontaneous vaginal delivery: Proceed with routine care Coding Level of Care Code Acute Code for Chg Fwd Diagnoses Spontaneous vaginal delivery O80
[2023-12-24] MEDS: PRENATAL VIT NO.130/IRON/FOLIC 1 EACH TABLET PO (08:29)
[2023-12-24] MEDS: ibuprofen 800 mg tablet PO ×2 (08:29→14:36)
[2023-12-24] MEDS: docusate sodium 100 mg Capsule PO (08:29)
[2023-12-24 19:11] LABS: Hematocrit 32.8 % (36-47); Mean Corpuscular HGB Conc 32.6 g/dL (30-55); Mean Corpuscular Hemoglobin 30.1 pg (27-33); Mean Corpuscular Volume 92.1 fl (85-98); Mean Platelet Volume 11.3 fL (7.4-10.4); Platelet Count 209 10^3/cmm (157-399); Red Blood Count 3.56 10^6/uL (3.85-5.65); Red Cell Distribution Width 12.1 % (12.1-15.1); White Blood Count 12.61 10^3/uL (3.29-11.43)
[2023-12-25 06:00] VITALS: BP 114/73; PULSE 74; RESP 16; TEMP 36.7; O2SAT 98
--- NOTE | 2023-12-25 07:11 | PM.OBGYDC ---
Discharge Providers DIALYSIS BIOMED TECHNICIAN Date of Admission: 12/23/23 12:45 Date of Discharge: 12/25/23 Attending Provider at Admission: Gadiel Rojo MD Attending Provider at Discharge: Gadiel Rojo MD Primary Care Provider: Gadiel Rojo MD Diagnoses at Discharge Discharge Diagnosis (1) Spontaneous vaginal delivery: Status: Acute Reason for Visit Reason for Visit: ctx Hospital Course Hospital Course This is a 28-year-old that presented in active labor. Patient had slowly progressed to completion and delivered without complication and a viable infant male vaginally. Patient had no complications. Vital signs have been stable. Information Peripartum Data: Infant Delivery Method: Vaginal Laceration description: None complications: none Physical Exam Const: COMMON NORMALS: no acute distress, patient oriented x3 and alert Neck/C-Spine: COMMON NORMALS: no JVD Resp: COMMON NORMALS: normal respiratory effort, No retractions and No use of accessory muscles Cardio: COMMON NORMALS: no JVD, regular rate and regular rhythm RATE: regular rate RHYTHM: regular rhythm GI: OTHER: Uterus firm and below umbilicus Extremity: COMMON NORMALS: no clubbing, cyanosis or edema Neuro: COMMON NORMALS: patient oriented x3 SENSORIUM/ORIENTATION: Yes alert Psych: COMMON NORMALS: mental status grossly normal and cooperative Skin: COMMON NORMALS: no rashes or lesions noted GENERAL SKIN EXAM: no rashes or lesions noted Urinary Catheter Management: Driver Latex Free: Cath Placed During This Visit: yes Urinary Catheter Date of Insertion: 12/23/23 History History History 3 Term 1 0 Miscarriages/Ectopic 2 Living Children 1 Discharge Data Studies Completed and Pending Laboratory Results WBC 12.61 10^3/uL (3.29-11.43) H 12/24/23 19:05 RBC 3.56 10^6/uL (3.85-5.65) L 12/24/23 19:05 Hgb 10.70 g/dL (11.27-16.99) L 12/24/23 19:05 Hct 32.8 % (36-47) L 12/24/23 19:05 MCV 92.1 fl (85-98) 12/24/23 19:05 MCH 30.1 pg (27-33) 12/24/23 19:05 MCHC 32.6 g/dL (30-55) 12/24/23 19:05 RDW 12.1 % (12.1-15.1) 12/24/23 19:05 Plt Count 209 10^3/cmm (157-399) 12/24/23 19:05 MPV 11.3 fL (7.4-10.4) H 12/24/23 19:05 Neut % (Auto) 72.4 % 12/23/23 12:20 Lymph % (Auto) 19.6 % 12/23/23 12:20 [place] % (Auto) 7.1 % 12/23/23 12:20 Eos % (Auto) 0.4 % 12/23/23 12:20 Baso % (Auto) 0.2 % 12/23/23 12:20 Neut # (Auto) 6.85 10^3/uL (1.8-7.7) 12/23/23 12:20 Lymph # (Auto) 1.9 10^3/uL (0.8-4.8) 12/23/23 12:20 [place] # (Auto) 0.7 10^3/uL (0.2-0.9) 12/23/23 12:20 Eos # (Auto) 0.0 10^3/uL (0.0-0.8) 12/23/23 12:20 Baso # (Auto) 0.0 10^3/uL (0.0-0.1) 12/23/23 12:20 Nucleated RBC % (auto) 0 % 12/23/23 12:20 Nucleated RBCs # 0.0 /100WBC 12/23/23 12:20 Blood Type A Positive 12/23/23 12:20 Rho(D) Type Rh positive 12/23/23 12:20 Antibody Screen Negative 12/23/23 12:20 Vitals Last Vital Signs Temp 98.1 F 12/25/23 06:00 Pulse 74 12/25/23 06:00 Resp 16 12/25/23 06:00 BP 114/73 12/25/23 06:00 Pulse Ox 98 12/25/23 06:00 O2 Del Method Room Air 12/25/23 06:00 Results Labs OB ([facility]): Blood Type A Positive 12/23/23 Antibody Screen Negative 12/23/23 Hct 32.8 % (36-47) L 12/24/23 Hgb 10.70 g/dL (11.27-16.99) L 12/24/23 Rho(D) Type Rh positive 12/23/23 Plt Count 209 10^3/cmm (157-399) 12/24/23 TSH 1.09 uIU/mL (0.27-4.20) 09/11/19 Hemoglobin A1c 5.3 % (4.0-6.0) 05/25/20 Ser , Semi-Qnt 0.50 mIU/mL 05/13/20 HCG, Qual Negative (Negative) 06/30/20 Urine Opiates Screen NEGATIVE ng/mL (NEGATIVE) 11/02/18 Ur Barbiturates Screen NEGATIVE ng/mL (NEGATIVE) 11/02/18 Ur Phencyclidine Scrn NEGATIVE ng/mL (NEGATIVE) 11/02/18 Ur Amphetamines Screen NEGATIVE ng/mL (NEGATIVE) 11/02/18 U Benzodiazepines Scrn NEGATIVE ng/mL (NEGATIVE) 11/02/18 Urine Cocaine Screen NEGATIVE ng/mL (NEGATIVE) 11/02/18 U Marijuana (THC) Screen NEGATIVE ng/mL (NEGATIVE) 11/02/18 Pap Smear Interpret See note 05/13/20 Prolactin 4.57 ng/mL (4.8-23.3) L 09/11/19 Discharge Plan Discharge Patient Disposition: Home Condition: Stable Prescriptions: Continued Vitamin 27 mg iron- 800 mcg Tablet 1 tab PO DAILY Discharge Orders: Discharge Order (Routine); Ordered 12/25/23 Ordered By: Gadiel Rojo Referrals: Gadiel Rojo MD [Primary Care Provider] - 6 Weeks Discharge Diet: Usual diet Discharge Activity: Limit activity as instructed Patient Instructions: Opioid Safety Discharge Attestations DIALYSIS BIOMED TECHNICIAN Time Spent in Discharge Care*: less than 30 min Coding Level of Care Code Acute Code for Chg Fwd Diagnoses Spontaneous vaginal delivery O80
--- NOTE | 2023-12-25 08:00 | ANE.PACU2 ---
Inpatient post-anesthesia follow up: Airway intact: Yes Vital signs: Temperature 98.3 F Pulse Rate 89 Respiratory Rate 17 Blood Pressure 119/82 Pulse Oximetry 97 Oxygen Delivery Me thod Room Air Oxygen Flow Rate Fraction of Inspir ed Oxygen Hydration adequate: Yes Nausea and vomiting: No Pain level: 1 Mental status: Baseline Epidural Start/End: Epidural Start Date: 12/23/23 Epidural Start Time: 14:00 Epidural End Date: 12/24/23 Epidural End Time: 06:00
[2023-12-25] MEDS: docusate sodium 100 mg Capsule PO (08:49)
[2023-12-25] MEDS: PRENATAL VIT NO.130/IRON/FOLIC 1 EACH TABLET PO (08:49)
[2023-12-25] MEDS: ibuprofen 800 mg tablet PO (08:49)
[2023-12-25 10:06] VITALS: BP 104/66; PULSE 69; RESP 16; TEMP 36.8
[2023-12-25 12:55] VITALS: BP 119/82; PULSE 89; RESP 17; TEMP 36.8; O2SAT 97
[2023-12-25 13:00] VITALS: BP 119/82; PULSE 89; RESP 17; TEMP 36.8; O2SAT 97
== END 2023-12-25 13:00 | disposition home or self-care (01) | DRG 807 ==
LOC: OPOB 12-24 12:50 → OBGYN 12-24 12:51
PROVIDERS: Admitting Provider Family Medicine; PCP Family Medicine; Visit Provider Family Medicine
DX: O99.344 Other mental disorders complicating childbirth (principal); Z37.0 Single live birth; F99 Mental disorder, not otherwise specified; O99.334 Smoking (tobacco) complicating childbirth; F17.290 Nicotine dependence, other tobacco product, uncomplicated; F32.A Depression, unspecified; Z3A.38 38 weeks gestation of pregnancy
CPT/HCPCS: 36415; 51702; 59025; 59409; 85025; 85027; 86850; 86900; 99211; J2590; J2795; J7120; J7121